=== PATIENT | male | born 1960 | race Caucasian/White ===

== ENCOUNTER → 2017-07-06 | Outpatient (CLI) | payer BC, OTHER ==
[~2017-07-06] MED LIST: MULTIVITAMINS PO; NORCO 5-325 TA1 EACH PO; SIMVASTATIN40 MG PO; SYNTHROID125 MCG PO; ZOLOFT100 MG PO
== END ==
LOC: CAT 16:12 → RAD 16:12
DX: Z13.6 Encounter for screening for cardiovascular disorders (principal)

== ENCOUNTER → 2020-01-05 | Outpatient (CLI) | payer BC, OTHER | LOC: LAB 10:56 | PROVIDERS: ATTEND Family Medicine | DX: R05 Cough (principal); Z20.828 Contact with and (suspected) exposure to other viral communicable diseases ==

== ENCOUNTER → 2021-02-28 | Outpatient (CLI) | payer BC, OTHER | LOC: SJCVCIMAG 09:50 | PROVIDERS: ATTEND Internal Medicine Cardiovascular Disease | DX: I65.23 Occlusion and stenosis of bilateral carotid arteries (principal); R93.1 Abnormal findings on diagnostic imaging of heart and coronary circulation; R06.00 Dyspnea, unspecified; E78.5 Hyperlipidemia, unspecified ==